=== PATIENT | female | born 1955 | race Caucasian/White ===

== ENCOUNTER 2016-10-02 06:18 | Day surgery (SDC) | payer MEDICARE, OTHER ==
[~2016-10-02] VITALS: Ht 167.6 cm; Wt 91.4 kg
[~2016-10-02 06:18] MED LIST: ALBU2.5V2 NEB; ALBU8HFA IH; ALEN35TA32 PO; BACL10TA PO; BUDE10.2 IH; BUPR1PAT9 TD; CRAN450T10 PO; DIPH25 PO; DSS100 PO; FERS325 PO; FLUT16H NASAL; GABA-533 PO; HYDR25TA PO; HYDR2TAB8 PO; LEVO50 PO; METO25 PO; MONT10TA21 PO; NORT25 PO; OMEP20 PO; PRED10 PO; SODIUM CHLORIDE 0.9% 1,000 ML IV ONE; SUMA25TA9 PO
[2016-10-02] MEDS ORDERED: SODIUM CHLORIDE 0.9% 1,000 ML IV ONE (06:39)
[2016-10-02] MEDS ORDERED: MIDAZOLAM HCL 2 MG/2 ML VIAL ONE (07:52)
[2016-10-02] MEDS ORDERED: FentaNYL CITRATE-PF 100 MCG/2 ML VIAL ONE (07:52)
[2016-10-02] MEDS ORDERED: MethylPREDNISolone SOD SUCC 125 MG/2 ML VIAL IVP ONE (09:15)
[2016-10-02] MEDS ORDERED: MethylPREDNISolone SOD SUCC 125 MG/2 ML VIAL ONE (09:26)
[2016-10-02] MEDS ORDERED: LIDOCAINE HCL 4% 50 ML SOLUTION TP ONE (16:38)
[2016-10-02] MEDS ORDERED: BENZOCAINE 20% 50 MCG/SPRAY 57 GM TP ONE (16:38)
[2016-10-02] MEDS ORDERED: LIDOCAINE HCL 2% 30 ML JELLY TP ONE (16:38)
[2016-10-02] MEDS ORDERED: OXYGEN THERAPY IH SCH (20:00)
== END 2016-10-02 10:20 | disposition home or self-care (01) ==
LOC: SURGERY 06:18
PROVIDERS: ATTEND Internal Medicine Critical Care Medicine
DX: J38.4 Edema of larynx (principal); B37.0 Candidal stomatitis; I10 Essential (primary) hypertension; E11.9 Type 2 diabetes mellitus without complications; J44.9 Chronic obstructive pulmonary disease, unspecified; Z85.828 Personal history of other malignant neoplasm of skin
CPT/HCPCS: 31623; 31624; 71010; 87015 ×2; 87070; 87101; 87205; 87220; 87252; 94640; J2250; J2930; J3010; J7030; 88108; 88312

== ENCOUNTER 2019-04-21 06:26 | Day surgery (SDC) | payer MEDICARE, OTHER ==
[~2019-04-21] VITALS: Ht 167.6 cm; Wt 96.3 kg
[~2019-04-21 06:26] MED LIST changes: +ALEN35TA23 PO; -ALEN35TA32 PO; +FERR-89 PO; -FERS325 PO; -SODIUM CHLORIDE 0.9% 1,000 ML IV ONE
[2019-04-21] MEDS ORDERED: LIDOCAINE 4% 50 ML SOLUTION TP ONE (06:27)
[2019-04-21] MEDS ORDERED: LIDOCAINE 2% 30 ML JELLY TP ONE (06:27)
[2019-04-21] MEDS ORDERED: BENZOCAINE 20% 50 MCG/SPRAY 57 GM TP ONE (06:27)
[2019-04-21] MEDS ORDERED: ALBUTEROL SULFATE 2.5 MG/0.5 ML NEB SOLUTION NEB ONE (06:27)
[2019-04-21] MEDS ORDERED: SODIUM CHLORIDE 0.9% 1,000 ML IV ONE ×2 (06:33→07:00)
[2019-04-21] MEDS ORDERED: MIDAZOLAM HCL 2 MG/2 ML VIAL ONE (08:11)
[2019-04-21] MEDS ORDERED: FentaNYL CITRATE-PF 100 MCG/2 ML VIAL ONE (08:11)
[2019-04-21] MEDS ORDERED: MethylPREDNISolone SOD SUCC 125 MG/2 ML VIAL IVP ONE (09:00)
[2019-04-21] MEDS ORDERED: OXYGEN THERAPY IH SCH (20:00)
== END 2019-04-21 10:40 | disposition home or self-care (01) ==
LOC: SURGERY 06:26
PROVIDERS: ATTEND Internal Medicine Critical Care Medicine
DX: R05 Cough (principal); R91.1 Solitary pulmonary nodule; J34.89 Other specified disorders of nose and nasal sinuses; J98.8 Other specified respiratory disorders; J38.4 Edema of larynx; B37.0 Candidal stomatitis; J45.909 Unspecified asthma, uncomplicated; Z79.899 Other long term (current) drug therapy
CPT/HCPCS: 31623; 31624; 71045; 87015; 87070; 87077; 87101; 87186; 87205; 87206; 87220; 88108; 88312; 93005; J2250; J2930; J3010; J7030

== ENCOUNTER 2020-04-29 06:42 | Day surgery (SDC) | payer MEDICARE, OTHER ==
[2020-04-26 16:35] LABS: COVID AG,FIA SOURCE NASOPHARYNGEAL
[~2020-04-29] VITALS: Ht 167.6 cm; Wt 92.7 kg
[~2020-04-29 06:42] MED LIST changes: -ALEN35TA23 PO; +ALEN35TA41 PO; +GABA-1201 PO; -GABA-533 PO; +HYDR-1475 PO; -HYDR25TA PO; +MONT-35 PO; -MONT10TA21 PO; +SODIUM CHLORIDE 0.9% 1,000 ML IV ONE
[2020-04-29] MEDS ORDERED: FentaNYL CITRATE-PF 100 MCG/2 ML VIAL ONE (07:41)
[2020-04-29] MEDS ORDERED: MIDAZOLAM HCL 2 MG/2 ML VIAL ONE (07:41)
[2020-04-29] MEDS ORDERED: BUPR750F3 PO (08:02)
[2020-04-29] MEDS ORDERED: MethylPREDNISolone SOD SUCC 125 MG/2 ML VIAL IVP ONE (08:30)
[2020-04-29] MEDS ORDERED: MethylPREDNISolone SOD SUCC 125 MG/2 ML VIAL ONE (09:29)
[2020-04-29] MEDS ORDERED: LIDOCAINE 2% 30 ML JELLY ONE ×2 (17:33→17:34)
[2020-04-29] MEDS ORDERED: BENZOCAINE 20% 50 MCG/SPRAY 57 GM ONE ×2 (17:33→17:34)
[2020-04-29] MEDS ORDERED: ALBUTEROL SULFATE 2.5 MG/0.5 ML NEB SOLUTION NEB ONE ×2 (17:33→17:34)
[2020-04-29] MEDS ORDERED: LIDOCAINE 4% 50 ML SOLUTION ONE (17:34)
[2020-04-29] MEDS ORDERED: OXYGEN THERAPY IH SCH (20:00)
== END 2020-04-29 10:30 | disposition home or self-care (01) ==
LOC: SURGERY 06:42
PROVIDERS: ATTEND Internal Medicine Critical Care Medicine
DX: J38.4 Edema of larynx (principal); B37.0 Candidal stomatitis; Z98.890 Other specified postprocedural states; J44.9 Chronic obstructive pulmonary disease, unspecified; M19.90 Unspecified osteoarthritis, unspecified site; I10 Essential (primary) hypertension; E78.5 Hyperlipidemia, unspecified
CPT/HCPCS: 31623; 31624; 71045; 87015; 87070; 87077; 87101; 87205; 87206; 87220; 87426; 88108; 88312; C9803; J2250; J2930; J3010; J7613; Z7610

== ENCOUNTER 2020-11-20 06:05 | Day surgery (SDC) | payer MEDICARE, OTHER ==
[2020-11-18 15:25] LABS: COVID AG,FIA SOURCE NASOPHARYNGEAL
[~2020-11-20] VITALS: Ht 167.6 cm; Wt 97.3 kg
[~2020-11-20 06:05] MED LIST changes: -ALBU2.5V2 NEB; -ALEN35TA41 PO; -BACL10TA PO; -BUPR1PAT9 TD; +BUPR750F3 PO; -HYDR-1475 PO; +HYDR25TA2 PO; -NORT25 PO; -PRED10 PO; -SODIUM CHLORIDE 0.9% 1,000 ML IV ONE; -SUMA25TA9 PO
[2020-11-20] MEDS ORDERED: BENZOCAINE 20% 50 MCG/SPRAY 57 GM TP ONE (06:06)
[2020-11-20] MEDS ORDERED: LIDOCAINE 4% 50 ML SOLUTION TP ONE (06:06)
[2020-11-20] MEDS ORDERED: LIDOCAINE 2% 30 ML JELLY TP ONE (06:06)
[2020-11-20] MEDS ORDERED: ALBUTEROL SULFATE 2.5 MG/0.5 ML NEB SOLUTION NEB ONE (06:06)
[2020-11-20] MEDS ORDERED: SODIUM CHLORIDE 0.9% 1,000 ML IV ONE (06:30)
[2020-11-20] MEDS ORDERED: SODIUM CHLORIDE 0.9% 1,000 ML ONE (06:48)
[2020-11-20] MEDS ORDERED: MIDAZOLAM HCL 2 MG/2 ML VIAL ONE (07:42)
[2020-11-20] MEDS ORDERED: FentaNYL CITRATE PF 100 MCG/2 ML VIAL ONE (07:42)
[2020-11-20] MEDS ORDERED: MethylPREDNISolone SOD SUCC 125 MG/2 ML VIAL IVP ONE (09:30)
[2020-11-20] MEDS ORDERED: MethylPREDNISolone SOD SUCC 125 MG/2 ML VIAL ONE (09:30)
[2020-11-20] MEDS ORDERED: OXYGEN THERAPY IH SCH (20:00)
== END 2020-11-20 11:15 | disposition home or self-care (01) ==
LOC: SURGERY 06:05
PROVIDERS: ATTEND Internal Medicine Critical Care Medicine
DX: J38.4 Edema of larynx (principal); B37.0 Candidal stomatitis; Z98.890 Other specified postprocedural states; J45.909 Unspecified asthma, uncomplicated; Z87.01 Personal history of pneumonia (recurrent); I10 Essential (primary) hypertension; D64.9 Anemia, unspecified; Z79.899 Other long term (current) drug therapy
CPT/HCPCS: 31623; 31624; 71045; 87015; 87070; 87077; 87101; 87205; 87206; 87220; 87426; 88108; 88184; 88185; 88312; C9803; J2250; J2930; J3010; J7030; 87186; J7613; Z7610

== ENCOUNTER → 2021-10-20 | Day surgery (SDC) | payer MEDICARE, OTHER ==
[2021-10-17 12:58] LABS: COVID AG,FIA SOURCE NASOPHARYNGEAL
[~2021-10-20] VITALS: Ht 167.6 cm; Wt 105.9 kg
[~2021-10-20] MED LIST changes: -ALBU8HFA IH; +BACL20TA PO; +BUDE10.27 IH; +CHOL500013 PO; -CRAN450T10 PO; +DICL100G51 TP; -DIPH25 PO; -DSS100 PO; +FAMO20 PO; -FERR-89 PO; +FERR325T27 PO; -FLUT16H NASAL; +HYDR-4870 PO; -HYDR25TA2 PO; +LIDOCAINE/PF 2% 5 ML VIAL IM ONE; +METH150T PO; +NORT50CA PO; +POTA-92 PO; +PROPOFOL 1% 20 ML VIAL IVP ONE; +SODIUM CHLORIDE 0.9% 1,000 ML IV ONE; +SUCR1ORA15 PO; +SUCR1TAB PO
== END | disposition home or self-care (01) ==
LOC: SURGERY 07:50
PROVIDERS: ATTEND Student in an Organized Health Care Education/Training Program
DX: K44.9 Diaphragmatic hernia without obstruction or gangrene (principal); K31.89 Other diseases of stomach and duodenum; J44.9 Chronic obstructive pulmonary disease, unspecified; E03.9 Hypothyroidism, unspecified; G43.909 Migraine, unspecified, not intractable, without status migrainosus; E66.01 Morbid (severe) obesity due to excess calories; K21.9 Gastro-esophageal reflux disease without esophagitis; I10 Essential (primary) hypertension; Z87.891 Personal history of nicotine dependence; Z90.49 Acquired absence of other specified parts of digestive tract; Z98.890 Other specified postprocedural states; Z79.899 Other long term (current) drug therapy
CPT/HCPCS: 43239; 87426; 88305; 88312; 88313; C1769; C9803; J2704; J3490

== ENCOUNTER 2022-06-05 06:48 | Day surgery (SDC) | payer MEDICARE, OTHER ==
[~2022-06-05] VITALS: Ht 167.6 cm; Wt 91.8 kg
[2022-06-05 06:47] LABS: COVID AG,FIA SOURCE NASAL SWAB
[~2022-06-05 06:48] MED LIST changes: -BUDE10.2 IH; +BUPR450F2 PO; -BUPR750F3 PO; -CHOL500013 PO; -FERR325T27 PO; -HYDR-4870 PO; +HYDR25TA2 PO; -HYDR2TAB8 PO; -LIDOCAINE/PF 2% 5 ML VIAL IM ONE; -METH150T PO; -PROPOFOL 1% 20 ML VIAL IVP ONE; +SODIUM CHLORIDE 0.9% 1,000 ML ONE; -SUCR1TAB PO
[2022-06-05] MEDS ORDERED: BENZOCAINE 20% 50 MCG/SPRAY 57 GM TP ONE (06:49)
[2022-06-05] MEDS ORDERED: ALBUTEROL SULFATE 2.5 MG/0.5 ML NEB SOLUTION NEB ONE (06:49)
[2022-06-05] MEDS ORDERED: LIDOCAINE 4% 50 ML SOLUTION TP ONE (06:49)
[2022-06-05] MEDS ORDERED: LIDOCAINE 2% 11 ML JELLY TP ONE (06:49)
[2022-06-05] MEDS ORDERED: MIDAZOLAM HCL 5 MG/ML VIAL ONE (08:16)
[2022-06-05] MEDS ORDERED: FentaNYL CITRATE PF 100 MCG/2 ML VIAL ONE (08:16)
[2022-06-05] MEDS ORDERED: MethylPREDNISolone SOD SUCC 125 MG/2 ML VIAL IVP ONE (09:45)
[2022-06-05] MEDS ORDERED: MethylPREDNISolone SOD SUCC 125 MG/2 ML VIAL ONE (09:52)
[2022-06-05] MEDS ORDERED: OXYGEN THERAPY IH SCH (20:00)
== END 2022-06-05 11:15 | disposition home or self-care (01) ==
LOC: SURGERY 06:48
PROVIDERS: ATTEND Internal Medicine Critical Care Medicine
DX: J38.4 Edema of larynx (principal); B37.0 Candidal stomatitis; Z87.891 Personal history of nicotine dependence; M19.90 Unspecified osteoarthritis, unspecified site; G43.909 Migraine, unspecified, not intractable, without status migrainosus; K21.9 Gastro-esophageal reflux disease without esophagitis; E03.9 Hypothyroidism, unspecified; Z86.19 Personal history of other infectious and parasitic diseases; Z98.890 Other specified postprocedural states; Z79.899 Other long term (current) drug therapy
CPT/HCPCS: 31623; 87101; 87220; 87070; 31624; 94640; 71045; 87015; 87426; 87206; J3010; J2930; J2250; Q9967; J7030; C9803; J7613; Z7610

== ENCOUNTER 2024-04-24 06:47 | Day surgery (SDC) | payer MEDICARE, OTHER ==
[~2024-04-24] VITALS: Ht 167.6 cm; Wt 84.5 kg
[~2024-04-24 06:47] MED LIST changes: +BENZ200C53 PO; -BUDE10.27 IH; -BUPR450F2 PO; +BUPR750F3 BU; +CETI10TA58 PO; +CHOL10002 PO; +CLOB15CR41 TP; +DAPA10TA PO; -DICL100G51 TP; +DICL100G60 TP; +FURO20TA4 PO; +GALC120P SQ; -HYDR25TA2 PO; +HYDR4 PO; +IPRA3AMP24 NEB; +KETO-100 OU; +NALO25TA4 PO; +NYST15PO13 TP; +SODIUM CHLORIDE 0.9% 0 ML ONE; -SODIUM CHLORIDE 0.9% 1,000 ML IV ONE; -SODIUM CHLORIDE 0.9% 1,000 ML ONE; -SUCR1ORA15 PO
[2024-04-24] MEDS ORDERED: LIDOCAINE 4% 50 ML SOLUTION TP ONE (06:48)
[2024-04-24] MEDS ORDERED: LIDOCAINE 2% 11 ML JELLY TP ONE (06:48)
[2024-04-24] MEDS ORDERED: BENZOCAINE 20% 50 MCG/SPRAY 57 GM TP ONE (06:48)
[2024-04-24] MEDS ORDERED: ALBUTEROL SULFATE 2.5 MG/0.5 ML NEB SOLUTION NEB ONE (06:48)
[2024-04-24] MEDS ORDERED: SODIUM CHLORIDE 0.9% 1,000 ML ONE (08:08)
[2024-04-24] MEDS: SODIUM CHLORIDE 0.9% 1,000 ML IV ONE (08:12)
[2024-04-24] MEDS ORDERED: FentaNYL CITRATE PF 100 MCG/2 ML VIAL ONE (08:44)
[2024-04-24] MEDS ORDERED: MIDAZOLAM HCL 2 MG/2 ML VIAL ONE (08:45)
[2024-04-24 10:05] VITALS: PULSE 62; RESP 20; O2SAT 94
[2024-04-24] MEDS: MethylPREDNISolone SOD SUCC 125 MG/2 ML VIAL IVP ONE (10:42)
== END 2024-04-24 12:10 | disposition left against medical advice (07) ==
LOC: SURGERY 06:47
PROVIDERS: ATTEND Internal Medicine Critical Care Medicine
DX: R05.3 Chronic cough (principal); R06.2 Wheezing; R49.0 Dysphonia; R04.2 Hemoptysis; J38.4 Edema of larynx; B37.0 Candidal stomatitis; I11.0 Hypertensive heart disease with heart failure; I50.9 Heart failure, unspecified; E03.9 Hypothyroidism, unspecified; J43.9 Emphysema, unspecified; K21.9 Gastro-esophageal reflux disease without esophagitis; G43.909 Migraine, unspecified, not intractable, without status migrainosus; Z90.49 Acquired absence of other specified parts of digestive tract; Z90.89 Acquired absence of other organs; Z98.818 Other dental procedure status; Z98.890 Other specified postprocedural states
CPT/HCPCS: 31623; 87206; 87101; 87220; 87070; 88108; 87186; 31624; 71045; 87015; J3010; J2250; J7030; J7613; Z7610